=== PATIENT | female | born 1945 | race Asian ===

== ENCOUNTER 2022-09-18 05:32 | Day surgery (SDC) | payer OTHER ==
[2022-09-18 09:29] VITALS: BMI 26.5
[2022-09-18 12:22] VITALS: BP 141/60; PULSE 67; RESP 20; TEMP 98
== END 2022-09-18 12:15 | disposition home or self-care (01) ==
LOC: JASU-ENDO 05:32
PROVIDERS: ATTEND Internal Medicine Gastroenterology
PROC: 0DJD8ZZ Inspection of Lower Intestinal Tract, Via Natural or Artificial Opening Endoscopic (ICD-10-PCS; principal; 2022-09-18 10:30)
DX: Z12.11 Encounter for screening for malignant neoplasm of colon (principal); I10 Essential (primary) hypertension; E11.9 Type 2 diabetes mellitus without complications; Z79.84 Long term (current) use of oral hypoglycemic drugs